=== PATIENT | male | born 1980 | race Caucasian/White ===

== ENCOUNTER 2025-06-02 08:09 | Outpatient (CLI) | payer OTHER, SELFPAY | END 2025-06-02 08:10 | disposition home or self-care (01) | PROVIDERS: PCP Family Medicine; Visit Provider Family Medicine | DX: Z13.1 Encounter for screening for diabetes mellitus (principal); Z13.6 Encounter for screening for cardiovascular disorders; Z12.5 Encounter for screening for malignant neoplasm of prostate | CPT/HCPCS: 80061; 82947; G0103 ==